=== PATIENT | female | born 1995 | race Two or more races ===

== ENCOUNTER 2025-05-30 21:09 | Emergency (ER) | payer MEDICAID, SELFPAY ==
[2025-05-30 21:10] VITALS: BMI 32.9
[2025-05-30 21:11] VITALS: BP 129/86; PULSE 91; RESP 18; TEMP 37; O2SAT 99
--- NOTE | 2025-05-30 21:33 | XR_ITS ---
Examination: OB Transvaginal ultrasound of the pelvis, complete Technique: Transvaginal sonographic images pelvis performed using armando scale imaging Exam date and time: May 30, 2025, 1122 hours INDICATIONS: Onset vaginal bleeding today FINDINGS: Uterus 12.7 cm Intrauterine gestation CRL 1.6 cm corresponds to 8 weeks 0 days gestational age Cardiac motion 169 bpm Subchorionic hemorrhage adjacent to the gestational sac 14 mm Right ovary obscured by bowel gas Left ovary 2.4 cm arterial flow IMPRESSION: Viable intrauterine gestation 8 weeks 0 days Probable adjacent small subchorionic hemorrhage, recommend short-term follow-up transvaginal pelvic sonography.
[2025-05-30 21:52] LABS: Basophils # (Auto) 0.0 Thou/mm3 (0.0-0.2); Basophils % (Auto) 1 % (0-2.5); Eosinophils # (Auto) 0.3 Thou/mm3 (0.0-0.5); Eosinophils % (Auto) 3 % (0-10); Hematocrit 39.9 % (36.0-46.0); Hemoglobin 13.9 g/dL (12.0-16.0); Immature Granulocytes Auto 0.02 Thou/mm3 (0.00-0.00); Lymphocytes # (Auto) 2.3 Thou/mm3 (1.0-4.8); Lymphocytes % (Auto) 28 % (10-50); Mean Corpuscular HGB Conc 34.8 g/dl (31.0-37.0); Mean Corpuscular Hemoglobin 31.1 pg (25.0-35.0); Mean Corpuscular Volume 89 fL (80-100); Monocytes # (Auto) 0.4 Thou/mm3 (0.0-0.8); Monocytes % (Auto) 5 % (0-12); Neutrophils # (Auto) 5.2 Thou/mm3 (1.8-7.7); Neutrophils % (Auto) 63 % (37-80); Nucleated Red Blood Cell # 0.00 Thou/mm3 (0.00-0.00); Nucleated Red Blood Cell % 0 /100 WBC (0); Platelet Count 255 Thou/mm3 (140-440); RDW Standard Deviation 38.9 fL (36.4-46.3); Red Blood Count 4.47 Miln/mm3 (4.00-5.20); White Blood Count 8.2 Thou/mm3 (3.6-11.0)
[2025-05-30 22:05] LABS: Collection Type, Urine Clean Catch
[2025-05-30 22:14] LABS: Alanine Aminotransferase 29 U/L (10-49); Albumin, Serum 4.5 gm/dL (3.5-5.0); Albumin/Globulin Ratio 1.4 (1.2-2.2); Alkaline Phosphatase 70 U/L (46-116); Anion Gap 10 (7-16); Aspartate Amino Transferase 23 U/L (0-34); BUN/Creatinine Ratio 8 Ratio (12-20); Bilirubin,Total 0.4 mg/dL (0.3-1.2); Blood Urea Nitrogen < 5 mg/dL (9-23); Calcium 9.3 mg/dL (8.3-10.6); Calcium (Corrected) 9.3 mg/dL (8.5-10.1); Carbon Dioxide 22.0 mMol/L (20.0-31.0); Chloride 107 mMol/L (98-107); Creatinine (Component) 0.6 mg/dL (0.6-1.3); Estimated Creatinine Clearance 138.2 mL/min (>60); Globulin 3.2 gm/dL (2.3-3.5); Glucose 91 mg/dL (74-106); Osmolality,Calculated 274 (275-295); Potassium 3.8 mMol/L (3.4-5.1); Sodium 139 mMol/L (136-145); Total Protein 7.7 gm/dL (5.7-8.2); eGFR > 60 See Note
[2025-05-30 22:17] LABS: Bilirubin,Urine Negative (Negative); Blood,Urine 3+ (Negative); Clarity,Urine Clear (Clear/Hazy); Color,Urine Colorless (Lt Yel-Yel); Culture Indicated,Urine Not Indicated; Glucose, Urine Negative (Negative); Ketones,Urine Negative (Negative); Leukocyte Esterase,Urine Positive (Negative); Nitrite,Urine Negative (Negative); PH,Urine 6.0 (5.0-7.0); Protein,Urine Negative (Neg - Trace); RBC,Urine 2 /hpf (0-3); Specific Gravity,Urine 1.011 (1.001-1.035); Squamous Epithelial Cell,Urine 1 /hpf (0-5); Urobilinogen,Urine Negative mg/dL (0.0-1.0); WBC,Urine < 1 /hpf (0-5)
--- NOTE | 2025-05-30 22:32 | PD.EDVAGBL ---
ED OB Contraction Preg RMI/HPI General Chief complaint: Vaginal Bleeding Stated complaint: 8 WKS PREG VAG BLEEDING Time Seen by Provider: 05/30/25 22:31 Arrival date/time: 05/30/25 21:09 29F with no significant PMH presents to ED with several days of vaginal spotting and pelvic pain/cramping. Patient denies dysuria. Patient has not had Rhogam during this . Patient is about 8 weeks . Limitations: no limitations Related Data Allergies Allergy/AdvReac Type Severity Reaction Status Date / Time amoxicillin Allergy Severe Swelling Verified 05/30/25 21:14 of Lip/Tongue/Throat Review of Systems Review of Systems Systems Reviewed: All systems reviewed, normal except as documented Genitourinary Genitourinary: Reports as per HPI, Reports abnormal vaginal bleeding and Reports pelvic pain Past Medical History Past Medical History NEUROLOGIC: Negative Neurological Disorders or Seizures CARDIAC: Negative Cardiac Disorders or Congestive Heart Failure RESPIRATORY: Positive Asthma (CHILDBIRTH ASTHMA.); Negative Chronic Obstructive Pulmonary Disease (COPD) GASTROINTESTINAL: Negative Gastrointestinal Disorders, Hepatitis or Colorectal Cancer GENITOURINARY: Negative Genitourinary Disorders, Renal Disease or Prostate Cancer REPRODUCTIVE: Positive Previous Pregnancies; Negative Breast Cancer, Endometriosis, Genital Herpes, Gonorrhea, Pelvic Inflammatory Disease, Syphilis, Testicular Cancer or Uterine Prolapse MUSCULOSKELETAL: Positive Musculoskeletal Disorders and Scoliosis; Negative Bone Cancer ENDOCRINE: Negative Endocrine Disorders, Diabetes Mellitus Type 1 or Diabetes Mellitus Type 2 HEMATOLOGIC: Negative Blood Disorders OTHER HISTORY: Positive Hospitalization (CHILDBIRTH.) and Chicken Pox; Negative Autoimmune Disease, Down Syndrome, Developmental Delay, Shingles, Falls, Blood Transfusions, Blood Transfusion Reaction, Anesthesia Reactions, Organ Transplant, Chemotherapy, Radiation Therapy, Hyperbaric Therapy, MRSA, VRSA, Vancomycin-Resistant Enterococci, Human Immunodeficiency Virus (HIV), Measles, Mumps, Rubella ([place] Measles), Pertussis, Clostridium Difficile, Cancer, Breast Cancer, Cervical Cancer, Colorectal Cancer, Lung Cancer, Ovarian Cancer, Prostate Cancer or Testicular Cancer Family History FAMILY HISTORY: Negative Family Psychiatric Problems, Family Respiratory Disorders, Family Cardiac Disorders, Family Gastrointestinal Problems, Family Cancer, Family Surgery or Family Anesthesia Reaction Surgical History SURGICAL: Negative Section or Organ Transplant Social History SMOKING STATUS: Never smoker SECOND HAND EXPOSURE: No ED Exam General Limitations: Present no limitations General appearance: Present alert and in no apparent distress Head Head exam: Present atraumatic Neck Neck exam: Present normal inspection, full ROM and trachea midline Chest Chest inspection: Present normal inspection and symmetric chest wall rise Neurological Exam Neurological exam: Present alert and oriented X3 Psychiatric Psychiatric exam: Present normal affect and normal mood Skin Skin exam: Present warm, dry, intact and normal color Course Quality Measures none Orders Category Date Time Status Administer Rhogam NOW Care 05/30/25 23:53 Completed US OB transvaginal Stat Exams 05/30/25 21:33 Completed Beta HCG,Quantitative Stat Lab 05/30/25 21:46 Completed CBC Stat Lab 05/30/25 21:46 Completed CMP [Comprehensive Metabolic Panel] Stat Lab 05/30/25 21:46 Completed RHOGAM [Rho(D) Immune Globulin] Stat Lab 05/30/25 21:46 Completed Type and Screen Stat Lab 05/30/25 21:46 Completed Urinalysis, C/S if Indicated Stat Lab 05/30/25 22:00 Completed Vital Signs Vital signs: Vital Signs Temperature 98.6 F 05/30/25 21:11 Pulse Rate 91 05/30/25 21:11 Respiratory Rate 18 05/30/25 21:11 Blood Pressure 129/86 H 05/30/25 21:11 Pulse Oximetry (%) 99 05/30/25 21:11 Oxygen Delivery Method Room Air 05/30/25 21:11 O2 at 99% on RA and WNLs Vaginal Bleeding MDM Narrative MDM Narrative: 29F with no significant PMH presents to ED with several days of vaginal spotting and pelvic pain/cramping. Patient denies dysuria. Patient has not had Rhogam during this . Patient is about 8 weeks . Physical exam reveals well-appearing female. Patient is afebrile, calm, and alert. US normal IUP with small subchroionic hemorrhage. No leukocytosis or anemia. Beta HCG WNLs. O-. Rhogam given w/o issue. Coil Tester given. UA only blood. Patient data External records reviewed:: [facility] previous records Clinical information provided by:: patient Social determinants that could affect healthcare access:: none Patient has the following chronic illnesses:: none How is presenting disease/condition affected by chronic disease/condition?: no chronic disease Evaluation data The following diagnostics were reviewed and interpreted by me:: lab results and radiology exam(s) Lab and/or radiology exams considered but not ordered:: ordered Interpretation Summary: above Medications / Prescriptions Medications or Prescriptions considered but not ordered:: ordered Medication administrations:: above Consultations Consultation(s) initiated? (list below): No Diagnosis Vaginal Bleeding Differential Diagnosis: missed , threatened , dysfunctional uterine bleeding, menometrorrhagia, incomplete , ectopic without intrauterine , vaginal bleeding and other (need for Rhogam) Most likely diagnosis given after review of the tests above:: need for Rhogam and subchorionic hemorrhage Admission Indicated Admission indicated?: not indicated Admission Request Was there a request for admission?: No Disposition Plan Disposition Plan: Discharge Discharge Attestation Discharge Attestation: The patient and all family members were given an opportunity to ask questions and understood the discharge instructions. Discharge instructions specifically effects, indications for sooner follow up or return to the emergency department, and the expected course of current diagnosis. Patient condition: Stable Discharge Plan Plan Patient Disposition: HOME (Self Care) Discharge Disposition comment: Stable Prescriptions/Referrals Referrals: Domingo Hunter MD [Primary Care Provider, [facility]] - In 1 week Problem List Clinical Impression: Subchorionic hemorrhage, Need for rhogam due to Rh negative mother Patient/Caregiver Discharge Instructions Education Materials: Rh0 [D] Immune Globulin injection, If You Are Rh Negative, Bleeding During Early , [facility] Subchorionic Hemorrhage Additional Instructions: Please follow-up with PCP/OBYGN within 24-48 hours and return immediately if symptoms worsen. Let any providers know you had Rhogam during this already, which should be effective for about 12 weeks. Print Language: Faroese Stand Alone Forms: Patient Portal Info Letter GISELE/PATRICIA Supervising Physician GISELE/PATRICIA Supervising Physician: Dr. Lopez
[2025-05-31 00:53] VITALS: BP 130/84; PULSE 83; RESP 16; TEMP 37.3; O2SAT 99
[2025-05-31 01:09] VITALS: BP 130/84; PULSE 69; RESP 16; TEMP 37; O2SAT 99
[2025-05-31 01:24] VITALS: BP 119/75; PULSE 72; RESP 16; TEMP 36.6; O2SAT 99
== END 2025-05-31 01:28 | disposition home or self-care (01) ==
PROVIDERS: Physician Assistant; Emergency Provider Emergency Medicine; PCP Family Medicine
DX: O20.8 Other hemorrhage in early pregnancy (principal); O26.891 Other specified pregnancy related conditions, first trimester; Z67.91 Unspecified blood type, Rh negative; Z3A.08 8 weeks gestation of pregnancy
CPT/HCPCS: 36415; 76817; 80053; 81001; 84702; 85025; 86850; 86900; 86901; 99283; J2790